=== PATIENT | female | born 1930 | race Caucasian/White ===

== ENCOUNTER 2019-03-19 15:57 | Emergency (ER) | payer OTHER ==
[2019-03-19] MEDS ORDERED: ONDANSETRON 4 MG/2 ML VIAL IVPUSH ONE (16:20)
[2019-03-19] MEDS ORDERED: ACETAMINOPHEN 1000 MG/100 ML VIAL (NON FORMULARY) IVPB ONE (16:20)
[2019-03-19] MEDS ORDERED: ONDANSETRON 4 MG/2 ML VIAL ONE (16:21)
[2019-03-19] MEDS ORDERED: ACETAMINOPHEN INJECTION 100 ML IVPB ONE (16:21)
[2019-03-19 16:24] VITALS: BMI 28.3
[2019-03-19] MEDS ORDERED: NICARDIPINE 25 MG in DEXTROSE 5%-WATER - 240 ML IVPB SCH (17:00)
[2019-03-19 17:03] LABS: BASO % 0.2 % (0-2.0); HEMATOCRIT 46.8 % (32.4-45.2); HEMOGLOBIN 15.9 GM/dL (10.7-15.3); LYMPH % 35.8 % (8-40); MCH 29.7 pg (25.7-33.7); MEAN CELL VOLUME 87.3 fl (80-96); MEAN PLT VOLUME 7.9 fl (7.5-11.1); MONO % 4.3 % (3.8-10.2); NEUT % 57.7 % (42.8-82.8); PLATELET COUNT 310 K/MM3 (134-434); RBC 5.37 M/mm3 (3.60-5.2); RDW 13.9 % (11.6-15.6); WHITE BLOOD COUNT 9.9 K/mm3 (4.0-10.0)
--- NOTE | 2019-03-19 17:08 | PDOC ---
Attending Attestation - Resident Resident Name: Toro Silva - ED Attending Attestation I have performed the following: I have examined & evaluated the patient, The case was reviewed & discussed with the resident, I agree w/resident's findings & plan - HPI HPI: 03/19/19 17:00 88 year old female with history of hyperlipidemia, CAD s/p ME 2013 s/p stent on Plavix, HTN, vertigo, hypothyroidism, who presents to the ED after fall/ syncope. family noted she c/o dizziness/lightheadedness, passed out and subsequently fell, hitting her head. per family, more lethargic, but alert and no confusion/seizure no cp or sob, no focal weakness/paresthesias. +headache. +scalp hematoma/contusion on right 03/19/19 17:23 - Physicial Exam PE: 03/19/19 17:01 General: GCS 15 NAD HEENT: +right parietal/occipital scalp hematoma and ecchymosis, mildly tender to palp, no bleeding no wounds. PERRL, EOMI. Airway intact. No battles sign or raccoon eyes. No e/o ocular. Dentition intact. No e/o septal hematoma, nasal bridge stable. Neck: neck supple, no midline C spine tenderness or deformity, ROM intact. No anterior mass or crepitus, trachea midline. Resp: Lungs clear bilaterally Chest: no clavicle or chest wall tenderness or crepitus CVS: RRR, 2+ pulses throughout. Abdomen: Abdomen soft, nontender, nondistended. Back: Back nontender, no midline spinal tenderness along cervical/thoracic/ lumbar spine, FROM, no stepoffs. MSK: Pelvis stable, Extremities symmetric, no focal areas of tenderness or deformities, proximal and distally; no pain on axial loading. FROM in all extrem. Neuro: Alert, oriented appropriately. CN II-XII grossly symmetric and intact. no focal neuro deficits. Sensation and strength intact throughout. Gait normal/ stable. Skin: intact, normal color and well perfused. - Critical Care Time Total Critical Care Time: 45 (ICH/SDH, hypertensive emergency) Critical Care Statement: The care of this patient involved high complexity decision making to prevent further life threatening deterioration of the patient 's condition and/or to evaluate & treat vital organ system(s) failure or risk of failure. - Medical Decision Making 03/19/19 17:08 Vital Signs Temp Pulse Resp BP Pulse Ox 98.0 F 94 H 20 211/123 H 98 03/19/19 16:00 03/19/19 16:00 03/19/19 16:00 03/19/19 16:00 03/19/19 16:00 Trauma ddx: ICH, SDH/ EDH, skull fx, hemorrhagic contusion, C spine injury/ strain, extremity sprain/fracture, pelvis fracture. MSK contusion, msk spasms. Rib fractures. Clinically doubt Intra abdominal and thoracic injuries/bleed VS notable for HTN, 200s/100s. symptomatic, +nausea and vomiting and headache with external signs of trauma. remainder of secondary survey wnl, unremarkable basic labs/lytes, syncope workup, EKG ordered. high concern for head bleed, expedited CT head analgesics, IV tylenol, zofran, cervical spine neg for fx/subluxation CT head +hemorrhagic contusion, right scalp hematoma visualzed, no skull fx. contre-coup SDH/contusions seen. IV keppra for sz ppx given traumatic head bleed. nicardipine gtt at 5mg/hr goal SBP<160. HOB elevated 30 degrees. airway patent, GCS 15 now. no NSG here. [facility] transfer for higher level of care. accepted by ED attg, Dr Middleton. will discuss with NSG. consent signed by eriberto at bedside. Spoke to transfer center([facility])- discussed with neuroendovascular fellow Teresa Rankin on behalf of the accepting physician Consuelo Briggs. Transfer center notified me that neurosurgery was also consulted- Yusef Medina Unable to administered platelets here due to immediate need to transfer and pt is already on route, will advise [facility] to administer 03/19/19 18:41 Heart Score/ECG Review #1 ECG reviewed & interpreted by me at: 16:55 General ECG Interpretation: Sinus Rhythm, Normal Rate, Normal Intervals 03/19/19 17:13 ekg normal sinus rhythm at 93 bpm, LAD, narrow QRS, nonspecific T wave abnormalities, no ST elevations or depressions. some limitations with artifact. Discharge Disposition - Diagnosis Hypertensive emergency, SDH (subdural hematoma), Focal hemorrhagic contusion of cerebrum, Cerebrovascular accident (CVA) Hematoma of right parietal scalp Qualifiers: Encounter type: initial encounter Qualified Code(s): S00.03XA - Contusion of scalp, initial encounter - Discharge Dispostion Disposition: TRANSFER ACUTE CARE/OTHER HOSP Condition at time of disposition: Guarded - Referrals Referrals: Morris Woo [Primary Care Provider] - - Patient Instructions - Post Discharge Activity - Transfer to Acute Care Facility Receiving Facility: [facility].
[2019-03-19] MEDS ORDERED: levETIRAcetam 500 MG/5 ML INJECTION VIAL IVPB ONE ×2 (17:16→17:46)
[2019-03-19 17:17] LABS: ALBUMIN 3.5 g/dl (3.4-5.0); BILIRUBIN,TOTAL 0.5 mg/dL (0.2-1); BLOOD UREA NITROGEN 12.4 mg/dL (7-18); CALCIUM 9.7 mg/dL (8.5-10.1); CREATININE 0.7 mg/dL (0.55-1.3); POTASSIUM 3.9 mmol/L (3.5-5.1); TOT PROT 7.2 g/dl (6.4-8.2)
--- NOTE | 2019-03-19 17:47 | PDOC ---
History of Present Illness - General History Source: Patient, Family - History of Present Illness Initial Comments: 88 y/o F, pmh of CAD s/p stenting on Plavix, htn, presents to the ED s/p syncope and lethargy. As per grandson and daughter pt was getting p from a seated osition when she quickly lost consciousness and fell down backward and hit her head on a tile floor. In the ED, pt was found to have a large hematoma on the right posterior scalp and elevated BP of 211/123. CAT scan in the ED showed a bleed in the left posterior aspect of the brain. She was started on Nicardipine 5mg drip, keppra 1000mg, and her BP came down to 177/88. Pt does not seem have any focal neurological deficits. Pt mentating well, AOx2. Denies f /c/n/v/d. 03/19/19 17:45 03/19/19 17:47 03/19/19 17:54 Associated Symptoms: reports: denies symptoms, fatigue, loss of consciousness, weakness. denies: insomnia, muscle spasms, nausea/vomiting, seizures, slurred speech, vision changes <Toro Silva - Last Filed: 03/19/19 18:07> <Ania Clinton - Last Filed: 03/19/19 18:41> - General Chief Complaint: CVA/TIA Stated Complaint: FALL Time Seen by Provider: 03/19/19 16:10 Past History - Travel Traveled outside of the country in the last 30 days: No Close contact w/someone who was outside of country & ill: No - Past Medical History COPD: No HTN: Yes Hypercholesterolemia: Yes Seizures: Yes - Surgical History Cardiac Surgery: Yes (stent) - Immunization History Immunization Up to Date: No - Psycho Social/Smoking Cessation Hx Smoking History: Unknown if ever smoked Have you smoked in the past 12 months: No Information on smoking cessation initiated: No Hx Alcohol Use: No Drug/Substance Use Hx: No <Toro Silva - Last Filed: 03/19/19 18:07> <Ania Clinton - Last Filed: 03/19/19 18:41> - Past Medical History Allergies/Adverse Reactions: Allergies Allergy/AdvReac Type Severity Reaction Status Date / Time No Known Allergies Allergy Verified 01/06/16 16:31 Home Medications: Ambulatory Orders Atorvastatin Ca [Lipitor] 80 mg PO HS 01/06/16 Clopidogrel Bisulfate [Clopidogrel] 75 mg PO DAILY 01/06/16 Iron 18 mg PO ASDIR 01/06/16 Levothyroxine [Synthroid -] 50 mcg PO DAILY 01/06/16 Meclizine HCl 25 mg PO TID PRN #30 tablet MDD 3 01/06/16 Metoprolol Tartrate 25 mg PO DAILY 01/06/16 Multivit-Min/FA/Lycopen/Lutein [Centrum Silver Tablet] 1 each PO ASDIR 01/06/16 Neuro Specific PMHX - Complaint Specific PMHX Glaucoma: No Herniated Disk: No Laminectomy: No Migraine: No Multiple Sclerosis: No Neuropathy: No TIA: Yes (in the past) <Toro Silva - Last Filed: 03/19/19 18:07> Review of Systems - Review of Systems Able to Perform ROS?: Yes Is the patient limited Uzbek proficient: No Constitutional: Yes: Symptoms Reported, Weakness, Weight Stable. No: Chills, Diaphoresis, Fever HEENTM: Yes: Symptoms Reported. No: Blurred Vision Respiratory: Yes: Symptoms reported. No: Cough, Orthopnea, Shortness of Breath Cardiac (ROS): Yes: Symptoms Reported. No: Chest Pain, Irregular Heart Rate ABD/GI: Yes: Symptoms Reported. No: Abdominal Distended, Diarrhea, Nausea, Vomiting, Indigestion Neurological: Yes: Symptoms reported, Headache, Weakness, Dizziness (mentating well, no focal neuro deficits appreciated, pt beginning to become more legarthic ). No: Numbness, Paresthesia, Seizure, Tingling, Tremors, Unsteady Gait <Toro Silva - Last Filed: 03/19/19 18:07> *Physical Exam - Vital Signs Last Vital Signs Temp Pulse Resp BP Pulse Ox 98.0 F 84 20 181/91 H 20 L 03/19/19 16:00 03/19/19 17:20 03/19/19 17:20 03/19/19 17:20 03/19/19 17:20 - Physical Exam General Appearance: Yes: Nourished, Appropriately Dressed HEENT: positive: EOMI, GALLITO, Normal ENT Inspection, Pharynx Normal Neck: positive: Trachea midline, Normal Thyroid, Supple Respiratory/Chest: positive: Lungs Clear, Normal Breath Sounds Cardiovascular: positive: Regular Rhythm, Regular Rate, S1, S2. negative: Murmur, Gallop/S3, Gallop/S4 Vascular Pulses: Dorsalis-Pedis (R): 2+, Doralis-Pedis (L): 2+ Gastrointestinal/Abdominal: positive: Normal Bowel Sounds, Soft Neurologic: positive: Alert, Normal Mood/Affect, Normal Response, Motor Strength 5/5, Responsive (no focal neuro deficits yet, mentating well, lethargic than usual). negative: Respond to painful stimul, Facial Droop, Numbness, Sensory Deficit, Confused, Disoriented <Toro Silva - Last Filed: 03/19/19 18:07> - Vital Signs Last Vital Signs Temp Pulse Resp BP Pulse Ox 98.0 F 84 20 181/91 H 20 L 03/19/19 16:00 03/19/19 17:20 03/19/19 17:20 03/19/19 17:20 03/19/19 17:20 <Ania Clinton - Last Filed: 03/19/19 18:41> Heart Score/ECG Review - History History: Slightly suspicious - Electrocardiogram EKG: Normal - Age Age: >/= 65 - Risk Factors Risk Factors Heart Score: Yes Hx Hypertension Based on the list above the patient has:: 1-2 risk factors - Troponin Troponin: </= normal limit - Score Heart Score - Total: 3 - ECG Intrepretation Rhythm: Regular Rhythm (sinus rhythm w/ Premature supravent complexes, voltage criteria for LVH) <Toro Silva - Last Filed: 03/19/19 18:07> ED Treatment Course - LABORATORY CBC & Chemistry Diagram: 03/19/19 16:20 03/19/19 16:20 - ADDITIONAL ORDERS Additional order review: Laboratory Results 03/19/19 03/19/19 16:20 16:20 Sodium 139 Potassium 3.9 Chloride 107 Carbon Dioxide 24 Anion Gap 8 BUN 12.4 Creatinine 0.7 Est GFR (CKD-EPI)AfAm 89.03 Est GFR (CKD-EPI)NonAf 76.82 Random Glucose 101 Calcium 9.7 Total Bilirubin 0.5 AST 31 ALT 20 Alkaline Phosphatase 132 H Creatine Kinase 123 Troponin I < 0.02 Total Protein 7.2 Albumin 3.5 03/19/19 16:20 RBC 5.37 H MCV 87.3 MCHC 34.0 RDW 13.9 D MPV 7.9 Neutrophils % 57.7 Lymphocytes % 35.8 D Monocytes % 4.3 Eosinophils % 2.0 Basophils % 0.2 - RADIOLOGY Radiology Studies Ordered: Category Date Time Status HEAD CT WITHOUT CONTRAST [CT] Stat CT Scan 03/19/19 16:30 Completed CHEST X-RAY PORTABLE* [RAD] Stat Radiology 03/19/19 16:16 Ordered - Medications Given in the ED: ED Medications Discontinued Medications Generic Name Dose Route Start Last Admin Trade Name Freq PRN Reason Stop Dose Admin Acetaminophen 1,000 mg 03/19/19 16:20 03/19/19 16:45 Ofirmev Injection - IVPB 03/19/19 16:21 1,000 mg ONCE ONE Administration Ondansetron HCl 4 mg 03/19/19 16:20 03/19/19 17:00 Zofran Injection IVPUSH 03/19/19 16:21 4 mg ONCE ONE Administration <Toro Silva - Last Filed: 03/19/19 18:07> - LABORATORY CBC & Chemistry Diagram: 03/19/19 16:20 03/19/19 16:20 - ADDITIONAL ORDERS Additional order review: Laboratory Results 03/19/19 03/19/19 03/19/19 16:20 16:20 16:20 PT with INR 11.00 INR 0.93 Sodium 139 Potassium 3.9 Chloride 107 Carbon Dioxide 24 Anion Gap 8 BUN 12.4 Creatinine 0.7 Est GFR (CKD-EPI)AfAm 89.03 Est GFR (CKD-EPI)NonAf 76.82 Random Glucose 101 Calcium 9.7 Total Bilirubin 0.5 AST 31 ALT 20 Alkaline Phosphatase 132 H Creatine Kinase 123 Troponin I < 0.02 Total Protein 7.2 Albumin 3.5 03/19/19 16:20 RBC 5.37 H MCV 87.3 MCHC 34.0 RDW 13.9 D MPV 7.9 Neutrophils % 57.7 Lymphocytes % 35.8 D Monocytes % 4.3 Eosinophils % 2.0 Basophils % 0.2 - RADIOLOGY Radiology Studies Ordered: Category Date Time Status CERVICAL SPINE CT W/O CONTR [CT] Stat CT Scan 03/19/19 16:35 Completed - Medications Given in the ED: ED Medications Discontinued Medications Generic Name Dose Route Start Last Admin Trade Name Freq PRN Reason Stop Dose Admin Acetaminophen 1,000 mg 03/19/19 16:20 03/19/19 16:45 Ofirmev Injection - IVPB 03/19/19 16:21 1,000 mg ONCE ONE Administration Levetiracetam 1,000 mg 03/19/19 17:16 03/19/19 17:50 Keppra Injection - IVPB 03/19/19 17:17 1,000 mg ONCE ONE Administration Ondansetron HCl 4 mg 03/19/19 16:20 03/19/19 17:00 Zofran Injection IVPUSH 03/19/19 16:21 4 mg ONCE ONE Administration <Ania Clinton - Last Filed: 03/19/19 18:41> Medical Decision Making - Critical Care Time Total Critical Care Time (minutes): 45 Critical Care Statement: The care of this patient involved high complexity decision making to prevent further life threatening deterioration of the patient 's condition and/or to evaluate & treat vital organ system(s) failure or risk of failure. - Medical Decision Making 88 y/o F, pmh of CAD s/p stenting on Plavix, htn, presents to the ED s/p syncope and lethargy. #Lethargic s/p Syncope 2/[address] shows a hemorrhagic contusion in the left cerebellar hemisphere, subdural hematomas along superior border of the tentorial Pt started on Nicardipine 5mg drip, Keppra 1000 Zofran Transfer out to [facility] for neurovascular intervention Spoke to transfer center([facility])- discussed with neuroendovascular fellow Teresa Rankin on behalf of the accepting physician Consuelo Briggs. Transfer center notified me that neurosurgery was also consulted- Yusef Medina Discuss with the ER physician Dr. Onel Middleton as he will be accepting the pt in the ER. Unable to administered platelets here due to immediate need to transfer and pt is already on route, will advise [facility] to administer 03/19/19 17:54 03/19/19 17:54 <Toro Silva - Last Filed: 03/19/19 18:07> Discharge - Discharge Information Problems reviewed: Yes <Toro Silva - Last Filed: 03/19/19 18:07> <Ania Clinton - Last Filed: 03/19/19 18:41> - Discharge Information Clinical Impression/Diagnosis: Hypertensive emergency, SDH (subdural hematoma), Focal hemorrhagic contusion of cerebrum, Cerebrovascular accident (CVA) Hematoma of right parietal scalp Qualifiers: Encounter type: initial encounter Qualified Code(s): S00.03XA - Contusion of scalp, initial encounter Condition: Guarded Disposition: TRANSFER ACUTE CARE/OTHER HOSP - Follow up/Referral Referrals: Morris Woo [Primary Care Provider] - - Patient Discharge Instructions - Post Discharge Activity
[2019-03-19 18:03] LABS: INR 0.93 (0.83-1.09)
[2019-03-19 19:19] VITALS: TEMP 98.1
[2019-03-19 19:20] VITALS: BP 147/77; PULSE 92
--- NOTE | 2019-03-20 13:34 | EKG ---
Test Reason : Blood Pressure : / mmHG Vent. Rate : 093 BPM Atrial Rate : 093 BPM P-R Int : 122 ms QRS Dur : 084 ms QT Int : 314 ms P-R-T Axes : 022 -24 -13 degrees QTc Int : 390 ms POOR DATA QUALITY, INTERPRETATION MAY BE ADVERSELY AFFECTED SINUS RHYTHM WITH PREMATURE SUPRAVENTRICULAR COMPLEXES VOLTAGE CRITERIA FOR LEFT VENTRICULAR HYPERTROPHY INFERIOR INFARCT (CITED ON OR BEFORE 06-JAN-2016) ABNORMAL ECG WHEN COMPARED WITH ECG OF 06-JAN-2016 16:25, PREMATURE SUPRAVENTRICULAR COMPLEXES ARE NOW PRESENT Confirmed by MD MELECIO, LIBERTAD ([id number]) on 03/20/2019 1:34:10 PM Referred By: Confirmed By:LIBERTAD MAJANO MD
== END 2019-03-19 18:10 | disposition short-term general hospital (02) ==
LOC: JER 15:57
PROC: 3E033GC Introduction of Other Therapeutic Substance into Peripheral Vein, Percutaneous Approach (ICD-10-PCS; principal; 2019-03-19)
PROC: 3E033NZ Introduction of Analgesics, Hypnotics, Sedatives into Peripheral Vein, Percutaneous Approach (ICD-10-PCS; 2019-03-19)
PROC: 3E033GC Introduction of Other Therapeutic Substance into Peripheral Vein, Percutaneous Approach (ICD-10-PCS; 2019-03-19)
PROC: 3E033GC Introduction of Other Therapeutic Substance into Peripheral Vein, Percutaneous Approach (ICD-10-PCS; 2019-03-19)
DX: R55 Syncope and collapse (principal); I16.1 Hypertensive emergency; S06.5X9A Traumatic subdural hemorrhage with loss of consciousness of unspecified duration, initial encounter; S06.339A Contusion and laceration of cerebrum, unspecified, with loss of consciousness of unspecified duration, initial encounter; S00.83XA Contusion of other part of head, initial encounter; W18.39XA Other fall on same level, initial encounter; Y93.89 Activity, other specified; Y92.018 Other place in single-family (private) house as the place of occurrence of the external cause; Y99.8 Other external cause status; I25.10 Atherosclerotic heart disease of native coronary artery without angina pectoris; I10 Essential (primary) hypertension; Z95.5 Presence of coronary angioplasty implant and graft; I25.2 Old myocardial infarction; Z79.02 Long term (current) use of antithrombotics/antiplatelets; E03.9 Hypothyroidism, unspecified; E78.00 Pure hypercholesterolemia, unspecified
CPT/HCPCS: 36415; 70450-TC; 72125-TC; 80053; 82550; 84484; 85025; 85610; 93005; 93010; 96365; 96375; 99285-25; J0131